=== PATIENT | male | born 1985 | race Caucasian/White ===

== ENCOUNTER 2021-09-23 10:30 | Emergency (ER) | payer BC ==
[2021-09-23] MEDS ORDERED: Ketorolac Tromethamine 30 MG/ML VIAL ONE (11:54)
[2021-09-23 12:16] LABS: #Lymphocytes 1.2 thou/uL (1.20-3.40); #Monocytes 0.8 thou/uL (0.11-0.59); #Neutrophils 7.1 thou/uL (1.40-6.50); %Basophils 0.4 % (0.0-1.0); %Lymphocytes 13.2 % (21.0-51.0); %Monocytes 8.5 % (0.0-10.0); %Neutrophils 77.9 % (42.0-75.0); Mean Corpuscular HGB CONC 33.1 g/dL (32.0-36.0); Mean Corpuscular Hemoglobin 30.2 pg (27.0-31.0); Mean Corpuscular Volume 91.3 fL (78.0-98.0); Mean Platelet Volume 7.6 fL (7.4-10.4); Platelet Count 189 thou/uL (130-400); RBC Distribution Width 11.2 % (11.5-14.5); Red Blood Cell (RBC) Count 4.96 mill/uL (4.70-6.10); White Blood Cell (WBC) Count 9.1 thou/uL (4.8-10.8)
[2021-09-23 12:41] LABS: ALT (SGPT) 14 U/L (8-55); AST (SGOT) 15 U/L (5-34); Albumin 4.5 g/dL (3.5-5.0); Alkaline Phosphatase 66 U/L (40-110); Anion Gap 15 mmol/L (10-20); BUN (Urea Nitrogen) 11 mg/dL (8.9-20.6); Bilirubin, Total 0.6 mg/dL (0.2-1.2); Calc. Creatinine Clearance 0 mL/min (70-130); Calcium 9.4 mg/dL (7.8-10.44); Carbon Dioxide 26 mmol/L (22-29); Chloride 100 mmol/L (98-107); Estimated GFR 97; Globulin 2.8 g/dL (2.4-3.5); Glucose 97 mg/dL (70-105); Potassium 3.7 mmol/L (3.5-5.1); Protein, Total 7.3 g/dL (6.0-8.3); Sodium 137 mmol/L (136-145)
[2021-09-23] MEDS ORDERED: Iopamidol-370 76% 500 ML 1 ML ONE (14:16)
== END 2021-09-23 13:03 | disposition home or self-care (01) ==
LOC: EEVIPCON 10:30 → ERS 10:30
DX: U07.1 COVID-19 (principal)
CPT/HCPCS: 36415; 71045; 71275; 80053; 84484; 85025; 93005; 96361; 96374; J1885; Q9967